=== PATIENT | male | born 1960 | race Two or more races ===

== ENCOUNTER 2025-07-22 12:43 | Outpatient (REF) | payer MEDICARE, SELFPAY | END 2025-07-22 12:44 | disposition home or self-care (01) | LOC: HO.LAB 12:43 | PROVIDERS: PCP Physician Assistant; Visit Provider Urology | DX: R31.29 Other microscopic hematuria (principal); N50.819 Testicular pain, unspecified | CPT/HCPCS: 81003; 88112; 99202 ==

== ENCOUNTER 2025-07-22 12:43 | Outpatient (AMB) | payer MEDICARE, SELFPAY ==
--- NOTE | 2025-07-22 12:58 | A.OFFVIS_ITS ---
Intake Visit Reasons: testicular pain/bilateral cysts SET UA Intake Note: Reason for Visit: New Patient Testicular Pain/ Cysts/ Hx of Hematuria Urology Meds: Tadalafil Blood Thinners: None Antibiotic Allergy: None Labs: None Imaging: Scrotal Ultrasound 06/2025 Last PVR: None Family History Prostate Cancer? no Bladder Cancer?no Previous Urology? [facility] pt was discharged Project Assistant Required: Yes Project Assistant Language: Meat Supervisor Services: Project Assistant Present Accompanied by: Self / Same As Patient Allergies No Known Allergies Allergy (Verified 07/22/25 13:00) HPI Comments Details: Jaiden is a pleasant Malay-speaking male. He is a patient of . He is seen for the following urologic conditions - right epididymal cyst - question left hernia Malay translation provided by qualified medical support assistant via telephone Occasional testicular pain Prior imaging On examination has right epididymal cyst, varicocele on left Reassurance was provided No clinical impact Follow p.r.n. [facility] Medical History Testicular cyst Groin pain Left varicocele Cardiac murmur Dyslipidemia Snoring Borderline hypertension Hematuria Review of Systems Const Denies chills and Denies fever(s) Card Reports no additional complaints and Denies syncope Resp Denies cough GI Denies abdominal pain and Denies heartburn Reports as per HPI and Denies change in libido Neuro Denies syncope Psych Denies change in libido Endo Denies change in libido Physical Exam Const General: cooperative, healthy appearing, comfortable and no acute distress Orientation/consciousness: patient oriented x3 HEENT Face and sinus: Yes normal facial exam Mouth: moist mucous membranes Neck Neck: Yes normal visual inspection, Yes full ROM and Yes trachea midline Chest Chest palpation & inspection: normal inspection of the chest Resp Effort & Inspection: normal respiratory effort, able to speak in complete sentences and no respiratory distress GI Inspection: Yes normal to inspection Back/Spine/Pelvis Cervical Spine: normal cervical lordosis Thoracic/Lumbar Spine: thoracic and lumbar spine normal to inspection Skin General skin exam: no rashes or lesions noted Neuro General: patient oriented x3, gait normal, tone normal and moves all extremities Extrem General: Yes normal to inspection and Yes capillary refill normal Results AMB Urinalysis, Automated UA Leukoctes 0 Barrett/uL Last Edit by ELTON Ayala on 07/22/25 13:09 UA Nitrite Negative Last Edit by Monica Womack, RMA on 07/22/25 13:09 UA Urobilinogen 0.2 mg/dL Last Edit by Monica Womack, RMA on 07/22/25 13:0 9 UA Protein 15 mg/dL Last Edit by Monica Womack, RMA on 07/22/25 13:09 UA pH 6.0 Last Edit by Monica Womack, RMA on 07/22/25 13:09 UA Blood 80 Lionel/uL Last Edit by Monica Womack, RMA on 07/22/25 13:09 UA Specific [place] 1.025 Last Edit by Monica Womack, RMA on 07/22/25 13: 09 UA Ketone Negative Last Edit by Monica Womack, RMA on 07/22/25 13:09 UA Bilirubin 0 mg/dL Last Edit by Monica Womack, RMA on 07/22/25 13:09 UA Glucose 0 mg/dL Last Edit by Monica Womack, RMA on 07/22/25 13:09 Results Reviewed Results Reviewed: Laboratory Last Values Urine pH (Auto) 6.0 07/22/25 13:07 Specific [place] (Auto) 1.025 07/22/25 13:07 Urine Protein (Auto) 15 mg/dL 07/22/25 13:07 Glucose (UA)(Auto) 0 mg/dL 07/22/25 13:07 Urine Ketones (Auto) Negative 07/22/25 13:07 Urine Blood (Auto) 80 Lionel/uL 07/22/25 13:07 Urine Nitrite (Auto) Negative 07/22/25 13:07 Urine Bilirubin (Auto) 0 mg/dL 07/22/25 13:07 Urine Urobilinogen (Auto) 0.2 mg/dL 07/22/25 13:07 Leukocyte Esterase (Auto) 0 Barrett/uL 07/22/25 13:07 Assessment & Plan Assessment & Plan (1) Orchalgia: Code(s): N50.819 - Testicular pain, unspecified Category: Medical Plan P.r.n. follow-up Orders: Orders AMB Urinalysis Automated Today Z13.9 - Encounter for screening, unspecified Urine Cytology Today R31.29 - Other microscopic hematuria Patient Instructions: This note is constructed using voice recognition software. While every effort has been made to ensure accuracy supervisory historian errors may have been included. Imaging studies, laboratory and physical exam results were discussed and reviewed in detail. No major barriers to patient understanding were identified. An opportunity to ask questions regarding the treatment plan was provided. All questions were answered. The patient expressed understanding and agreement with the above treatment plan. The patient is aware they should contact our office by phone for worsening of their current condition or the appearance of new urologic symptoms. Compliance is encouraged with any medications and followup testing that is ordered. It is a privilege to participate in the urologic care of your patient. If you have any questions or concerns regarding treatment for the above conditions, or other urologic issues, please do not hesitate to contact me. The office teleph one contact is [phone]. Sincerely, Dr Anshul Burciaga MD, [facility] - Urology Compassionate Specialist Care for the Genitourinary System Coding Level of Care Code New Pt Level 3 (43474) Diagnoses Orchalgia N50.819
--- OUTSIDE RECORDS SUMMARY | 2025-07-22 16:33 | XMS_ITS | Clinical Summary ---
[facility] [address] [place] [address] Care Team Providers Care Roller Staker Name Role Phone Rika Berry Primary Care Provider [phone] Surgical History Surgery Date Site/Laterality Comments COLONOSCOPY 08/09/2022 PROCEDURE: HISTORICAL COLONOSCOPY; COMMENT: normal Medical History Medical History Date Comments Microscopic hematuria DX:Microsc opic hematuria Snoring DX:Snoring Social History Tobacco Use Types Packs/Day Years Used Date Smoking Tobacco: Never Smokeless Tobacco: Never Alcohol Use Standard Drinks/Week Comments Yes 0 (1 standard drink = 0.6 oz pur e alcohol) Sex and Gender Information Value Date Recorded Sex Assigned at Not on file Legal Sex Male 10:44 AM EST Gender Identity Not on file Sexual Orientation Not on file Plan of Treatment Health Maintenance Due Date Last Done Comments DTaP,Tdap,and Td Vaccines (1 - Tdap) 1977 Pneumococcal Vaccine: 50+ Ye ars (1 of 1 - PCV) 2008 Zoster Vaccines (1 of 2) 2008 Abdominal Aortic Aneurysm (A AA) Screen 2022 Cholesterol Screening (Lipid Panel) 2022 Hepatitis C Screening 2022 Social Influencers of Health Screening 2022 Falls Risk Assessment 2023 Depression Screening 08/05/2024 COVID-19 Vaccine ( - 2024-2 6 season) 2025 Influenza Vaccine (#1) 2025 Colorectal Cancer Screening: Colonoscopy 08/07/2032 RSV Immunization Adult Patie nts (1 - 1-dose 75+ series) 2033 HIB Vaccines Aged Out No longer eligi ble based on patient's age to complete this topic HPV Vaccines Aged Out No longer eligi ble based on patient's age to complete this topic Hepatitis A Vaccines Aged Out No long er eligible based on patient's age to complete this topic Hepatitis B Vaccines Aged Out No long er eligible based on patient's age to complete this topic IPV Vaccines Aged Out No longer eligi ble based on patient's age to complete this topic MMR Vaccines Aged Out No longer eligi ble based on patient's age to complete this topic Meningococcal ACWY Vaccine Aged Out N o longer eligible based on patient's age to complete this topic Meningococcal B Vaccine Aged Out No l onger eligible based on patient's age to complete this topic RSV Immunization Patients Un abby 20 months Aged Out No longer eligible b ased on patient's age to complete this topic Varicella Vaccines Aged Out No longer eligible based on patient's age to complete this topic Care Teams Roller Staker Relationship Specialty Start Date End Date Rika Berry PA [address] [place] [address] PCP - General 08/14/21
== END 2025-07-22 13:34 | disposition home or self-care (01) ==
LOC: HO.HUSH 12:44
PROVIDERS: PCP Physician Assistant; Visit Provider Urology
DX: Z13.9 Encounter for screening, unspecified (principal); N50.819 Testicular pain, unspecified
CPT/HCPCS: 99203